=== PATIENT | female | born 1935 | race Caucasian/White ===

== ENCOUNTER 2021-10-28 02:38 | Emergency (ER) | payer MEDICARE ==
[~2021-10-28] VITALS: Ht 167.6 cm; Wt 74.5 kg
[2021-10-28 03:39] LABS: BASOPHILS # (AUTO) 0.1 X10'3 (0-0.2); BASOPHILS % (AUTO) 1.5 % (0-1); EOSINOPHILS # (AUTO) 0.1 X10'3 (0-0.9); HEMATOCRIT 37.8 % (35.0-45.0); HEMOGLOBIN 12.5 g/dl (12.0-16.0); LYMPHOCYTES # (AUTO) 0.6 X10'3 (1.1-4.8); LYMPHOCYTES % (AUTO) 11.4 % (21-51); MEAN CORPUSCULAR HEMOGLOBIN 28.6 PG (27.0-31.0); MEAN CORPUSCULAR HGB CONC 33.1 g/dL (33.0-36.5); MEAN CORPUSCULAR VOLUME 86.5 FL (78-98); MEAN PLATELET VOLUME 7.9 FL (7.4-10.4); MONOCYTES # (AUTO) 0.6 X10'3 (0-0.9); MONOCYTES % (AUTO) 11.5 % (2-12); NEUTROPHILS # (AUTO) 3.8 X10'3 (1.8-7.7); NEUTROPHILS % (AUTO) 73.6 % (42-75); PLATELET COUNT 198 X10'3 (140-440); RED BLOOD COUNT 4.37 X10'6 (4.20-5.60); RED CELL DISTRIBUTION WIDTH 13.3 % (11.5-14.5); WHITE BLOOD COUNT 5.1 X10'3 (4.5-11.0)
[2021-10-28 03:50] LABS: ALANINE AMINOTRANSFERASE 33 U/L (12-78); ALBUMIN 3.5 G/DL (3.4-5.0); ALBUMIN/GLOBULIN RATIO 1.1 (1.1-1.5); ALKALINE PHOSPHATASE 42 IU/L (46-116); ANION GAP 7 (8-16); ASPARTATE AMINO TRANSFERASE 29 U/L (10-37); BILIRUBIN,TOTAL 0.4 MG/DL (0.1-1.0); BLOOD UREA NITROGEN 24 MG/DL (7-18); BUN/CREATININE RATIO 30.4 (6.6-38.0); CALCIUM 9.1 MG/DL (8.5-10.1); CHLORIDE 98 MMOL/L (99-107); CREATININE 0.79 MG/DL (0.40-0.90); GLUCOSE 115 MG/DL (70-104); POTASSIUM 3.1 MMOL/L (3.5-5.1); SODIUM 134 MMOL/L (135-145); TOTAL CARBON DIOXIDE 29.1 MMOL/L (24-32); TOTAL PROTEIN 6.8 G/DL (6.4-8.2); eGFR 69 ML/MIN
[2021-10-28 04:02] LABS: CLARITY,URINE CLEAR (Clear); COLOR,URINE YELLOW (Yellow); GLUCOSE, URINE NEGATIVE (Neg); KETONES,URINE NEGATIVE (Neg); LEUKOCYTE ESTERASE ,URINE NEGATIVE (Neg); NITRITES, URINE NEGATIVE (Neg); OCCULT BLOOD,URINE NEGATIVE (Neg); PH,URINE 6.5 (4.8-8.0); PROTEIN,URINE NEGATIVE (Neg); UROBILINOGEN,URINE 0.2 E.U/dL (0.2-1.0)
[2021-10-28 04:05] LABS: UA COLLECTION TYPE CLN CATCH MIDSTREAM
--- NOTE | 2021-10-28 07:00 | NUR ---
ON GOING NEURO CONSULT.
--- NOTE | 2021-10-28 09:06 | NUR ---
awaiting for pt to go to MRI.
[2021-10-28] MEDS ORDERED: acetaminophen 325mg tablet PO ONE (13:35)
[2021-10-28 13:48] VITALS: BP 175/90
[2021-10-28] MEDS ORDERED: WALKERFR (13:53)
== END 2021-10-28 14:18 | disposition home or self-care (01) ==
LOC: ER 02:40
DX: G62.9 Polyneuropathy, unspecified (principal); R25.2 Cramp and spasm; I10 Essential (primary) hypertension; M47.817 Spondylosis without myelopathy or radiculopathy, lumbosacral region
CPT/HCPCS: 36415; 70450; 71045; 72141; 72146; 72148; 80053; 81003; 84484; 85025; 93005; 99285

== ENCOUNTER 2022-07-23 20:40 | Emergency (ER) | payer MEDICARE, MEDICAID ==
[~2022-07-23] VITALS: Ht 167.6 cm; Wt 80.6 kg
[~2022-07-23 20:40] MED LIST: WALKERFR
[2022-07-23] MEDS ORDERED: heparin 10,000 units/1 ML INJ IV ONE (23:55)
[2022-07-23] MEDS ORDERED: heparin 25,000 UNIT/250ml bag 250 ML IV PRN (23:55)
[2022-07-23] MEDS ORDERED: heparin 10,000 units/1 ML INJ IV PRN (23:55)
[2022-07-24 00:42] LABS: BASOPHILS # (AUTO) 0.1 X10'3 (0-0.2); BASOPHILS % (AUTO) 1.2 % (0-1); EOSINOPHILS # (AUTO) 0.2 X10'3 (0-0.9); EOSINOPHILS % (AUTO) 2.3 % (0-6); HEMATOCRIT 33.2 % (35.0-45.0); HEMOGLOBIN 11.4 g/dl (12.0-16.0); LYMPHOCYTES # (AUTO) 1.3 X10'3 (1.1-4.8); LYMPHOCYTES % (AUTO) 14.9 % (21-51); MEAN CORPUSCULAR HEMOGLOBIN 29.6 PG (27.0-31.0); MEAN CORPUSCULAR HGB CONC 34.4 g/dL (33.0-36.5); MEAN CORPUSCULAR VOLUME 85.9 FL (78-98); MEAN PLATELET VOLUME 7.3 FL (7.4-10.4); MONOCYTES # (AUTO) 0.9 X10'3 (0-0.9); MONOCYTES % (AUTO) 10.6 % (2-12); NEUTROPHILS # (AUTO) 6.2 X10'3 (1.8-7.7); PLATELET COUNT 292 X10'3 (140-440); RED BLOOD COUNT 3.86 X10'6 (4.20-5.60); RED CELL DISTRIBUTION WIDTH 12.7 % (11.5-14.5); WHITE BLOOD COUNT 8.7 X10'3 (4.5-11.0)
[2022-07-24 00:49] LABS: MAGNESIUM 1.5 MG/DL (1.5-2.4)
[2022-07-24 01:14] LABS: ALANINE AMINOTRANSFERASE 27 U/L (12-78); ALBUMIN 2.8 G/DL (3.4-5.0); ALBUMIN/GLOBULIN RATIO 0.7 (1.1-1.5); ALKALINE PHOSPHATASE 86 IU/L (46-116); ANION GAP 7 (8-16); ASPARTATE AMINO TRANSFERASE 21 U/L (10-37); BILIRUBIN,TOTAL 0.3 MG/DL (0.1-1.0); BLOOD UREA NITROGEN 22 MG/DL (7-18); BUN/CREATININE RATIO 24.7 (6.6-38.0); CALCIUM 8.8 MG/DL (8.5-10.1); CHLORIDE 96 MMOL/L (99-107); CREATININE 0.89 MG/DL (0.40-0.90); GLUCOSE 95 MG/DL (70-104); POTASSIUM 3.2 MMOL/L (3.5-5.1); SODIUM 132 MMOL/L (135-145); TOTAL CARBON DIOXIDE 29.1 MMOL/L (24-32); TOTAL PROTEIN 7.1 G/DL (6.4-8.2); eGFR 60 ML/MIN
[2022-07-24] MEDS ORDERED: acetaminophen 325mg tablet PO ONE (02:35)
[2022-07-24 02:37] LABS: CLARITY,URINE CLEAR (Clear); COLOR,URINE YELLOW (Yellow); GLUCOSE, URINE NEGATIVE (Neg); KETONES,URINE NEGATIVE (Neg); LEUKOCYTE ESTERASE ,URINE NEGATIVE (Neg); NITRITES, URINE NEGATIVE (Neg); OCCULT BLOOD,URINE NEGATIVE (Neg); PH,URINE 6.5 (4.8-8.0); PROTEIN,URINE NEGATIVE (Neg); UROBILINOGEN,URINE 0.2 E.U/dL (0.2-1.0)
[2022-07-24] MEDS ORDERED: WARF-65 PO (02:38)
[2022-07-24] MEDS ORDERED: ENOX40SY7 SQ (02:38)
[2022-07-24 02:49] LABS: UA COLLECTION TYPE CLN CATCH MIDSTREAM
[2022-07-24 03:24] VITALS: BP 156/93
== END 2022-07-24 03:27 | disposition home or self-care (01) ==
LOC: ER 20:42
DX: I82.402 Acute embolism and thrombosis of unspecified deep veins of left lower extremity (principal); I10 Essential (primary) hypertension; Z88.0 Allergy status to penicillin; Z79.899 Other long term (current) drug therapy; Z79.1 Long term (current) use of non-steroidal anti-inflammatories (NSAID)
CPT/HCPCS: 36415; 80053; 81003; 83735; 85025; 85610; 85730; 93971; 99285

== ENCOUNTER 2022-08-23 11:03 | Emergency (ER) | payer MEDICARE, MEDICAID ==
[~2022-08-23] VITALS: Ht 167.6 cm; Wt 77.3 kg
[~2022-08-23 11:03] MED LIST changes: +ENOX40SY7 SQ; +WARF-65 PO
[2022-08-23 13:05] LABS: APTT 28 SECONDS (22-32)
[2022-08-23 13:07] LABS: ALANINE AMINOTRANSFERASE 19 U/L (12-78); ALBUMIN 3.6 G/DL (3.4-5.0); ALKALINE PHOSPHATASE 56 IU/L (46-116); ANION GAP 5 (8-16); ASPARTATE AMINO TRANSFERASE 24 U/L (10-37); BILIRUBIN,TOTAL 0.4 MG/DL (0.1-1.0); BLOOD UREA NITROGEN 20 MG/DL (7-18); BUN/CREATININE RATIO 23.3 (10.0-20.0); CALCIUM 9.4 MG/DL (8.5-10.1); CHLORIDE 100 MMOL/L (99-107); CREATININE 0.86 MG/DL (0.40-0.90); GLUCOSE 104 MG/DL (70-104); POTASSIUM 3.4 MMOL/L (3.5-5.1); SODIUM 137 MMOL/L (135-145); TOTAL CARBON DIOXIDE 31.7 MMOL/L (24-32); TOTAL PROTEIN 7.3 G/DL (6.4-8.2); eGFR 63 ML/MIN
[2022-08-23 13:30] LABS: BASOPHILS # (AUTO) 0.1 X10'3 (0-0.2); BASOPHILS % (AUTO) 1.5 % (0-1); EOSINOPHILS # (AUTO) 0.2 X10'3 (0-0.9); EOSINOPHILS % (AUTO) 2.8 % (0-6); HEMATOCRIT 37.3 % (35.0-45.0); HEMOGLOBIN 12.6 g/dl (12.0-16.0); LYMPHOCYTES % (AUTO) 17.5 % (21-51); MEAN CORPUSCULAR HEMOGLOBIN 29.6 PG (27.0-31.0); MEAN CORPUSCULAR HGB CONC 33.8 g/dL (33.0-36.5); MEAN CORPUSCULAR VOLUME 87.8 FL (78-98); MEAN PLATELET VOLUME 8.5 FL (7.4-10.4); MONOCYTES # (AUTO) 0.6 X10'3 (0-0.9); MONOCYTES % (AUTO) 10.9 % (2-12); NEUTROPHILS # (AUTO) 3.7 X10'3 (1.8-7.7); NEUTROPHILS % (AUTO) 67.3 % (42-75); PLATELET COUNT 220 X10'3 (140-440); RED BLOOD COUNT 4.25 X10'6 (4.20-5.60); RED CELL DISTRIBUTION WIDTH 14.2 % (11.5-14.5); WHITE BLOOD COUNT 5.5 X10'3 (4.5-11.0)
[2022-08-23] MEDS ORDERED: FURO-150 PO (13:57)
[2022-08-23] MEDS ORDERED: POTA-192 PO (13:57)
[2022-08-23 14:19] VITALS: BP 174/89
== END 2022-08-23 14:21 | disposition home or self-care (01) ==
LOC: ER 11:03
DX: I82.402 Acute embolism and thrombosis of unspecified deep veins of left lower extremity (principal); R60.0 Localized edema; I10 Essential (primary) hypertension; Z88.0 Allergy status to penicillin; Z79.899 Other long term (current) drug therapy; Z79.1 Long term (current) use of non-steroidal anti-inflammatories (NSAID); Z79.2 Long term (current) use of antibiotics
CPT/HCPCS: 36415; 71045; 80053; 83880; 85025; 85610; 85730; 93005; 93971; 99285

== ENCOUNTER → 2023-12-15 | Outpatient (CLI) | payer MEDICARE, MEDICAID | END | disposition home or self-care (01) | LOC: CARD DIAG 09:04 | PROVIDERS: ATTEND Student in an Organized Health Care Education/Training Program | DX: I08.0 Rheumatic disorders of both mitral and aortic valves (principal); R00.1 Bradycardia, unspecified | CPT/HCPCS: 93306 ==

== ENCOUNTER 2024-02-11 11:08 | Outpatient (CLI) | payer MEDICARE, MEDICAID | END 2024-02-11 23:59 | disposition home or self-care (01) | LOC: VAS 11:08 | PROVIDERS: ATTEND Student in an Organized Health Care Education/Training Program | DX: I82.432 Acute embolism and thrombosis of left popliteal vein (principal); R59.9 Enlarged lymph nodes, unspecified; M79.605 Pain in left leg | CPT/HCPCS: 93971 ==

== ENCOUNTER 2024-05-05 08:49 | Outpatient (CLI) | payer MEDICARE, MEDICAID ==
[~2024-05-05] VITALS: Ht 170.2 cm; Wt 76.7 kg
[2024-05-05 09:45] VITALS: PULSE 56; RESP 16; O2SAT 0
[2024-05-05] MEDS: albuterol 2.5 MG/3 ML nebule NEB ONE (09:45)
[2024-05-05 09:58] VITALS: PULSE 62; RESP 16
== END 2024-05-05 23:59 | disposition home or self-care (01) ==
LOC: RT 08:49
PROVIDERS: ATTEND Student in an Organized Health Care Education/Training Program
DX: R94.2 Abnormal results of pulmonary function studies (principal); R59.0 Localized enlarged lymph nodes
CPT/HCPCS: 94060; 94729; 94760; Z7610

== ENCOUNTER 2024-09-18 20:14 | Emergency (ER) | payer MEDICARE, MEDICAID ==
[~2024-09-18] VITALS: Ht 162.6 cm; Wt 78.3 kg
--- NOTE | 2024-09-18 20:56 | ELECTROCARDIOGRAPH REPORT ---
[facility] Test Date: 2024-09-18 Test Time: 20:54:53 Pat Name: JUNE ORTIZ Department: EMERGENCY ROOM [id number] Room: Gender: F Internal Controls Manager: GIO : [id number] Requested By: BALDO ALVAREZ Order Number: [id number] Reading MD: Dr. Baldo Alvarez Measurements Intervals [place] Rate: 59 P: -71 WI: 191 QRS: -46 QRSD: 87 T: 56 QT: 403 QTc: 400 Interpretive Statements Sinus or ectopic atrial bradycardia Atrial premature complexes Left anterior fascicular block Low voltage, precordial leads Consider anterior infarct Baseline wander in lead(s) V1 Electronically Signed On 09-18-2024 23:36:[address] Baldo Alvarez Please click the below link to view image of tracing.
--- NOTE | 2024-09-18 22:11 | Physician Documentation ---
History of Present Illness ~ Chief Complaint: Hypertension Stated Complaint: HIGH B/P Time Seen by MD: 21:57 OK to notify your PCP?: Yes Primary Medical Doctor: AVERY Source: patient Mode of Arrival: POV Exam Limitations: no limitations HPI This is an 89-year-old female who comes in with a concerned with the hypertension. The patient has a history of hypertension and takes medications both in the morning in the evening. She was not taking her medication in his evening. She states that is she felt tightness in both sides of her neck which prompted her to take her blood pressure earlier today. It was high so she came to the ER. She denies chest pain or shortness of breath. She denies headache, visual disturbance or dizziness. She denies distal numbness tingling weakness. Medication Reconciliation Allergies: Coded Allergies: Penicillins (Verified Allergy, Mild, RASH, 08/23/22) Scheduled Enoxaparin Sodium (Lovenox), 80 MG SQ BID Warfarin Sodium (Warfarin Sodium), 2 TABLET PO DAILY Durable Medical Equipment Walker, Front Wheeled (Walker, Front-wheeled), UNIT, (DME) Past Medical History Past Medical History: Peripheral Neuropathy, Hypertension Past Surgical History: noncontributory Alcohol Use: None Drug Use: none Lives In: Home Physical Exam Vital Signs: Temperature: 98.2, Source: Temporal, Heart Rate: 67, Respiratory Rate: 18, BP: 182/88, Pulse Oximetry: 97, Weight: 78.300 Oxygen Flow Rate: 0 Pulse Oximetry Reflects: adequate oxygenation General Appearance: alert, no apparent distress Pupils/EOM/Fundus: PERRLA Respiratory No accessory muscle use or retractions. Lungs are clear to auscultation in all orozco. Cardiovascular No rubs, gallops or murmurs. No peripheral edema, cyanosis or clubbing of the extremities Skin: normal color, warm/dry Progress Results/Orders Results/Orders Completed Orders - IAIN VILLALBA Clonidine Tablet (Catapres Tablet) (09/18/24 22:10) Medications Received in ER Medications (Trade) Dose Ordered Sig/Debbi Route PRN Reason Start Time Stop Time Status Last Admin Dose Admin (Catapres tablet) 0.1 mg ONCE ONCE PO 09/18/24 22:10 09/18/24 22:11 DC 09/18/24 22:15 0.1 MG Vital Signs 09/18/24 09/18/24 20:25 22:51 Temp 98.2 98.6 Pulse 67 69 Resp 18 16 B/P (MAP) 182/88 155/85 (108) Pulse Ox 97 96 O2 Flow Rate 0 Medical Decision Making Findings I gave the patient clonidine 0.1 mg p.o.. Her blood pressure is now 155 over 90. I am going to discharge her home with the instructions to follow up with the PCP tomorrow to discuss adjusting her blood pressure medication. Otherwise the patient was asymptomatic and well-appearing. Additional Information Essential hypertension. Hypertension urgency. Doubt acute cardiovascular or n eurovascular etiologies. Departure Disposition: HOME / SELF CARE / HOMELESS Impression: Primary Impression: Hypertensive urgency Condition: Stable Discharge Instructions: Hypertension, Adult, [id number] Additional Instructions: Follow up with the primary care physician tomorrow to discuss adjusting her blood pressure medication. Return to the ER for any worsening or acute issues. Referrals: NO PRIMARY CARE PROVIDER (PCP) Signature Scribe Signature: No scribe Attestation: The note accurately reflects work and decisions made by me.Iain RIOS 09/18/24 22:59 IAIN VILLALBA Sep 18, 2024 22:11
[2024-09-18] MEDS: cloNIDine 0.1 mg tablet PO ONE (22:15)
[2024-09-18 22:51] VITALS: BP 155/85; PULSE 69; RESP 16; TEMP 98.6; O2SAT 96
== END 2024-09-18 23:08 | disposition home or self-care (01) ==
LOC: ER 20:15
DX: I16.0 Hypertensive urgency (principal); I10 Essential (primary) hypertension; Z88.0 Allergy status to penicillin
CPT/HCPCS: 93005; 99283

== ENCOUNTER 2024-12-18 09:46 | Outpatient (CLI) | payer MEDICARE, MEDICAID ==
--- NOTE | 2024-12-18 11:26 | VASCULAR REPORT ---
Left lower extremity venous duplex Clinical History: Progression of clot from 02/11/2024 Comparison: VASC VL VENOUS on DOS: 02/11/24 Findings: Duplex Doppler evaluation of the deep venous system of the left lower extremity from the common femor al vein to the popliteal vein including color Doppler and spectral/pulsed waveform analysis was perfo rmed. The bilateral common femoral vein demonstrates appropriate compressibility and waveform variability. There is compressibility/patency of the great saphenous vein at the proximal thigh. No acute thrombus seen on today's examination. Left gastrocnemius thrombus appears to have resolved. 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 No thromb us is visualized. The popliteal vein demonstrates appropriate compressibility and waveform variability. There is normal compressibility at the tibioperoneal trunk. Impression: No acute thrombus seen on today's examination. Left gastrocnemius thrombus appears to have resolved. 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 No thromb us is visualized. If clinical concern/symptoms persist or worsen, short-interval follow-up study is suggested.
== END 2024-12-18 23:59 | disposition home or self-care (01) ==
LOC: RAD 09:46
PROVIDERS: ATTEND Student in an Organized Health Care Education/Training Program
DX: I82.532 Chronic embolism and thrombosis of left popliteal vein (principal); I82.512 Chronic embolism and thrombosis of left femoral vein
CPT/HCPCS: 93971